=== PATIENT | male | born 1950 | race American Indian/Alaskan Native ===

== ENCOUNTER 2018-07-01 07:29 | Emergency (ER) | payer MEDICARE ==
[2018-07-01] MEDS ORDERED: KEPPRA 1,000 MG/NS 0.75% 100ML 1,000 MG/100 ML BAG IV ONE ×2 (07:37→12:07)
--- NOTE | 2018-07-01 07:39 | Emergency Department Report ---
HPI <LISANDRA STARR - Last Filed: 07/02/18 01:46> - HPI HPI: 67-year-old -[place] male, who does not appear to have ever been here before, presents to the emergency department from home via EMS with complaint of seizures. The patient had a witnessed seizure at home followed by another witnessed seizure by EMS, for which he received 2 mg of Ativan and stopped seizing. He is currently altered and more postictal and a poor historian. Per EMS, the patient does not have any seizure history prior to today and just has a past medical history of hypertension and glaucoma. <JUSTUS ANDERSON Dian - Last Filed: 07/02/18 18:49> - General Time Seen by Provider: 07/01/18 07:34 ED Review of Systems ROS: Stated complaint: SEIZURE Other details as noted in HPI <LISANDRA STARR - Last Filed: 07/02/18 01:46> ROS: Stated complaint: SEIZURE Other details as noted in HPI Comment: Unobtainable due to pts medical conditions <JUSTUS ANDERSON Dian - Last Filed: 07/02/18 18:49> Physical Exam - Physical Exam Vital Signs: Vital Signs 07/01/18 07/01/18 07/01/18 07:36 10:56 11:00 Temperature 97.6 F Pulse Rate 118 H 106 H 101 H Respiratory 17 25 H 25 H Rate Blood Pressure 165/65 O2 Sat by Pulse 93 Oximetry 07/01/18 07/01/18 07/01/18 11:16 11:56 12:00 Temperature Pulse Rate 96 H 95 H 89 Respiratory 22 13 18 Rate Blood Pressure 116/77 136/86 143/103 O2 Sat by Pulse Oximetry 07/01/18 07/01/18 07/01/18 12:30 13:00 14:00 Temperature Pulse Rate 82 87 76 Respiratory 14 18 13 Rate Blood Pressure 139/83 141/84 130/76 O2 Sat by Pulse Oximetry 07/01/18 07/01/18 07/01/18 15:00 16:00 18:15 Temperature Pulse Rate 74 82 Respiratory 20 14 Rate Blood Pressure 125/65 142/81 132/72 O2 Sat by Pulse 99 99 Oximetry <AMIRASWAPNALISANDRA - Last Filed: 07/02/18 01:46> - Physical Exam Physical Exam: GENERAL: Patient is ill-appearing. Mild. HEENT: Normocephalic. Atraumatic. Patient has moist mucous membranes. EYES: Extraocular motions are intact. Pupils are equal and reactive to light bilaterally. NECK: Supple. Trachea is midline. CHEST/LUNGS: Clear to auscultation. There is no respiratory distress noted. HEART/CARDIOVASCULAR: Regular. There is no tachycardia. There is no obvious murmur. ABDOMEN: Abdomen is soft, nontender. Patient has normal bowel sounds. There is no abdominal distention. SKIN: Skin is warm and dry. NEURO: The patient is awake but confused and agitated. Patient currently nonverbal. There appears to be some right upper extremity weakness when compared to the other 3 extremities. No facial asymmetry. MUSCULOSKELETAL: There is no tenderness or deformity. There is no evidence of acute injury. <JUSTUS ANDERSON S - Last Filed: 07/02/18 18:49> ED Course Vital Signs 07/01/18 07/01/18 07/01/18 07:36 10:56 11:00 Temperature 97.6 F Pulse Rate 118 H 106 H 101 H Respiratory 17 25 H 25 H Rate Blood Pressure 165/65 O2 Sat by Pulse 93 Oximetry 07/01/18 07/01/18 07/01/18 11:16 11:56 12:00 Temperature Pulse Rate 96 H 95 H 89 Respiratory 22 13 18 Rate Blood Pressure 116/77 136/86 143/103 O2 Sat by Pulse Oximetry 07/01/18 07/01/18 07/01/18 12:30 13:00 14:00 Temperature Pulse Rate 82 87 76 Respiratory 14 18 13 Rate Blood Pressure 139/83 141/84 130/76 O2 Sat by Pulse Oximetry 07/01/18 07/01/18 07/01/18 15:00 16:00 18:15 Temperature Pulse Rate 74 82 Respiratory 20 14 Rate Blood Pressure 125/65 142/81 132/72 O2 Sat by Pulse 99 99 Oximetry - Reevaluation(s) Reevaluation #1: 07/01/18 18:51 Case discussed with [facility], Dr. Gayle She has requested a reassessment of the patient. I have gone back to reassess the patient, and he is resting comfortably, awake, follows commands, and somewhat confused. He has 5 out of 5 strength in the left upper, left lower extremity, and 4 out of 5 strength right upper, right lower extremity. No additional seizures, blood pressure 130/70, heart rate in the 70s, to 80s, patient appears to be comfortable. MRI has been performed, interpretation is pending at this time. Dr. Gayle continues to accept patients to the neuro critical care [facility] units. <LISANDRA STARR - Last Filed: 07/02/18 01:46> - Consultations Consultation #1: I spoke to the neurologist/stroke attending at [facility], Dr. Kyle Walker, who took a look at the CT imaging results and was sent to the case presentation and did not feel that the patient appeared as likely to be a stroke candidate and certainly did not appear to require TPA or thrombectomy. He spoke with Dr. Gayle, neuro [facility], and they feel that it is possible that the patient has a small mass in this area with her was reports of vascular occlusion and small focal hemorrhage. Dr. Gayle has accepted the patient for transfer to her service pending an open bed. 07/01/18 15:23 <JUSTUS ANDERSON - Last Filed: 07/02/18 18:49> ED Medical Decision Making - Lab Data Result diagrams: 07/01/18 07:47 07/01/18 08:33 <LISANDRA STARR - Last Filed: 07/02/18 01:46> - Lab Data Result diagrams: 07/01/18 07:47 07/01/18 08:33 - Radiology Data Radiology results: report reviewed CT head without contrast: Seizure, unresponsive. No prior exam for comparison. Axial images demonstrates a focal area of hypodensity in the left caudate nucleus. There is generalized edema of the left cerebral hemisphere in the left parietal hemisphere and what may represent effacement of the lateral left ventricle. There is no midline shift. There is a question of a small focal area of hemorrhage adjacent to the left occipital horn. No extracerebral collections are noted. The visualized bony structures are generally unremarkable. Impression: The findings are consistent with probable subtle vascular occlusion supplying the left parietal region and possible small focal hemorrhage. Recommendation: Consider MRI scan for better definition. Transcribed By: FLORENCE Dictated By: JOSE CARLOS PALACIO MD Electronically Authenticated By: JOSE CARLOS PALACIO MD Signed Date/Time: 07/01/18 1012 PROCEDURE: MR BRAIN WO CON HISTORY: stroke, seizure, possible small hemorrhage FINDINGS: MRI of the brain was performed using sagittal T1, axial diffusion, axial T2, axial T2*gradient echo, axial FLAIR, axial T1, coronal FLAIR images. Comparison is made to the CT head performed earlier in the day. These images demonstrate that there is a complete corpus callosum. There is no Chiari malformation. Diffusion-weighted images demonstrate no acute transcortical or acute lacunar infarct. Posterior and lateral to the posterior horn of the left lateral ventricle is a multiloculated high T2 signal intensity region, axial T2-weighted images 12 and 13, measuring approximately 3.7 x 2.6 cm. This appears to be a fluid signal intensity and could, in and of itself, simply represent a neuroglial cyst. However, there is also extensive abnormal increased T2 signal intensity within the left parietal lobe white matter, as well as within the splenium of the corpus callosum. The corpus callosum signal in particular is very abnormal and is suspicious for primary brain glioma neoplasm such as glioblastoma. Postcontrast imaging is recommended. There is [id number] midline shift of approximately 0.3 cm. The vertebral arteries are not well seen. There is normal flow-void the basilar artery. There are normal flow voids in both internal carotid arteries. The mastoid air cells appear clear. There is no evidence of acute sinusitis. Impression: Multiloculated high T2 signal intensity region within left posterior periventricular white matter. There is also extensive abnormal increased T2 increased FLAIR signal intensity within the white matter of left parietal lobe extending into the splenium of the corpus callosum. 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 Post contrast MRI imaging is recommended. This document is electronically signed by Ian Lui MD., July 01 2018 08:06:17 PM ET Transcribed By: JEROME Dictated By: IAN LUI MD Electronically Authenticated By: IAN LUI MD Signed Date/Time: 07/01/182007 - Medical Decision Making This patient presented originally with a complaint of 2 witnessed seizures prior to presentation in the emergency department. Once he got here he appeared to have some right upper extremity weakness compared to the other extremities. He had some improvement from a basically unresponsive postictal state to be normally but confused but has remained in this confused state throughout his ED course. Labs show an ammonia level of 180 which may be the etiology of his symptoms. However he also had a CT scan of the head without contrast that showed a subtle area of vascular occlusion to the left parietal area as well as a very small possible subtle hemorrhagic focus adjacent to the left posterior horn. The patient has been loaded with Keppra. He has some hypokalemia so he has been given potassium chloride. He has been given some IV fluid resuscitation. At this time the patient has been accepted to [facility] pending a bed which may take multiple hours. MRI done later in the afternoon and I can see the results now show that it is suspicious for a brain mass such as a glioblastoma. The patient was accepted and transferred to [facility] by the evening. - Differential Diagnosis CVA, TIA, brain bleed, Hyperammonemia <JUSTUS ANDERSON - Last Filed: 07/02/18 18:49> Critical care attestation.: If time is entered above; I have spent that time in minutes in the direct care of this critically ill patient, excluding procedure time. <LISANDRA STARR - Last Filed: 07/02/18 01:46> Critical Care Time: Yes Critical care time in (mins) excluding proc time.: 35 Critical care attestation.: If time is entered above; I have spent that time in minutes in the direct care of this critically ill patient, excluding procedure time., Discussion with the neurologist and neuro [facility]. Critical Care Time: 35 minutes <JUSTUS ANDERSON - Last Filed: 07/02/18 18:49> ED Disposition Is pt being admited?: No Does the pt Need Aspirin: No <LISANDRA STARR - Last Filed: 07/02/18 01:46> Is pt being admited?: No Time of Disposition: 15:57 <JUSTUS ANDERSON - Last Filed: 07/02/18 18:49> Clinical Impression: Seizures, Hyperammonemia, Hypokalemia, Brain mass CVA (cerebral vascular accident) Qualifiers: CVA mechanism: unspecified Qualified Code(s): I63.9 - Cerebral infarction, unspecified Disposition: DC/TX-70 ANOTHER TYPE HLTHCARE Condition: Serious Referrals: KOBE CAMPOS MD [Primary Care Provider] - 3-5 Days
[2018-07-01 07:58] LABS: Hemoglobin 13.8 gm/dl (11.8-15.2); Mean Corpuscular HGB Conc 32 % (32-34); Mean Corpuscular Volume 87 fl (84-94); Platelet Count 215 K/mm3 (140-440); Red Blood Count 4.92 M/mm3 (3.65-5.03); Red Cell Distribution Width 15.5 % (13.2-15.2)
[2018-07-01 08:17] LABS: Alanine Aminotransferase 12 units/L (7-56); Albumin 4.3 g/dL (3.9-5); BUN/Creatinine Ratio 6; Blood Urea Nitrogen 9 mg/dL (9-20); Calcium 9.4 mg/dL (8.4-10.2); Hemolysis Index 19
[2018-07-01] MEDS ORDERED: NACL 0.9% 1000 ML 1,000 ML IV ONE (08:21)
[2018-07-01] MEDS ORDERED: ATIVAN IV ONE (08:30)
[2018-07-01] MEDS ORDERED: CEPHULAC PO ONE (08:31)
[2018-07-01] MEDS ORDERED: ATIVAN ONE (08:41)
[2018-07-01 09:01] LABS: BUN/Creatinine Ratio 7; Blood Urea Nitrogen 9 mg/dL (9-20); Hemolysis Index 9
[2018-07-01 10:03] LABS: Total Cells Counted 100
[2018-07-01 10:04] LABS: Giant Platelets Rare; Platelet Estimate Consistent w Auto; RBC Morphology Normal
--- NOTE | 2018-07-01 10:33 | Cat Scan Report ---
CT head without contrast: Seizure, unresponsive. No prior exam for comparison. Axial images demonstrates a focal area of hypodensity in the left caudate nucleus. There is generalized edema of the left cerebral hemisphere in the left parietal hemisphere and what may represent effacement of the lateral left ventricle. There is no midline shift. There is a question of a small focal area of hemorrhage adjacent to the left occipital horn. No extracerebral collections are noted. The visualized bony structures are generally unremarkable. Impression: The findings are consistent with probable subtle vascular occlusion supplying the left parietal region and possible small focal hemorrhage. Recommendation: Consider MRI scan for better definition.
[2018-07-01] MEDS: KCL 10MEQ/100ML 10 MEQ/100 ML BAG IV SCH ×3 (10:55→13:50)
--- NOTE | 2018-07-01 11:15 | Emergency Department Report ---
ED General Adult HPI - General Chief complaint: Seizure Stated complaint: SEIZURE Time Seen by Provider: 07/01/18 07:34 Source: EMS Mode of arrival: Stretcher Limitations: Altered Mental Status - Related Data Allergies Allergy/AdvReac Type Severity Reaction Status Date / Time No Known Allergies Allergy Unverified 07/01/18 07:55 ED Review of Systems ROS: Stated complaint: SEIZURE Other details as noted in HPI ED Past Medical Hx - Past Medical History Previous Medical History?: Yes Hx Hypertension: Yes Additional medical history: hyperlipidemia, glycoma - Surgical History Past Surgical History?: No - Social History Smoking Status: Unknown if ever smoked Substance Use Type: None ED Physical Exam - General Limitations: Altered Mental Status ED Course Vital Signs 07/01/18 07:36 Temperature 97.6 F Pulse Rate 118 H Respiratory 17 Rate Blood Pressure 165/65 O2 Sat by Pulse 93 Oximetry ED Medical Decision Making - Lab Data Result diagrams: 07/01/18 07:47 07/01/18 08:33 Critical care attestation.: If time is entered above; I have spent that time in minutes in the direct care of this critically ill patient, excluding procedure time. ED Disposition Condition: Stable Referrals: KOBE CAMPOS MD [Primary Care Provider] - 3-5 Days
--- NOTE | 2018-07-01 11:24 | Consultation ---
Medications and Allergies Allergies Allergy/AdvReac Type Severity Reaction Status Date / Time No Known Allergies Allergy Unverified 07/01/18 07:55 Active Meds: Active Medications Potassium Chloride (Kcl 10meq/100ml) 10 meq in 100 mls @ 100 mls/hr IV Q1H [facility] Stop: 07/01/18 11:59 Last Admin: 07/01/18 10:55 Dose: 100 mls/hr Documented by: Levetiracetam 750 mg/ Sodium (Chloride) 107.5 mls @ 400 mls/hr IV Q12HR [facility] Physical Examination - Vital Signs Vital Signs: Vital Signs Temp Pulse Resp BP Pulse Ox 97.6 F 118 H 17 165/65 93 07/01/18 07:36 07/01/18 07:36 07/01/18 07:36 07/01/18 07:36 07/01/18 07:36 Results - Laboratory Findings CBC and BMP: 07/01/18 07:47 07/01/18 08:33 Abnormal Lab Findings: Abnormal Labs 07/01/18 07/01/18 07/01/18 07:42 07:47 07:47 WBC 18.9 H RDW 15.5 H Lymphocytes % (Manual) 49.0 H Monocytes % (Manual) 8.0 H Lymphocytes # (Manual) 9.3 H Monocytes # (Manual) 1.5 H Basophils # (Manual) 0.2 H Potassium 3.0 L Carbon Dioxide 10 L Glucose 181 H POC Glucose Ammonia 180.0 H 07/01/18 07/01/18 07:52 08:33 WBC RDW Lymphocytes % (Manual) Monocytes % (Manual) Lymphocytes # (Manual) Monocytes # (Manual) Basophils # (Manual) Potassium 2.8 L* Carbon Dioxide 19 L D Glucose 174 H POC Glucose 176 H Ammonia Assessment and Plan [facility] Date of Service 07/01/2018 Originally called as stroke alert but seen as STAT consult as imaging was already done and he presented with seizure. Impression: 1- probable subtle vascular occlusion supplying the left parietal region and possible small focal hemorrhage based on head CT; 2- new onset seizure likely due to the above 3- altered mental status likely postictal Recommendations: 1- brain MRI with and without contrast 4- head and neck CTA or MRA; does not appear to have focal deficits on evaluation at least suggestive of Large Vessel Occlusion therefore no need for STAT head and neck CTA, also not an IV tpA candidate due to potential small hemorrhage on head CT 2- Prn IV Ativan for breakthrough seizure 3- Continue Keppra 750mg BID 4- No Antiplatelet therapy or anticoagulation 5- Routine EEG 6- keep [id number] (if stroke is rule out then keep SBP<160) [facility] Neurologist will follow up with results. Please call us back at [phone] with questions. Reason for Neurology Consult: - History of Present Illness: - 67-year-old -[place] male, who does not appear to have ever been here before, presents to the emergency department from home via EMS with complaint of seizures. The patient had a witnessed seizure at home followed by another witnessed seizure by EMS, for which he received 2 mg of Ativan and stopped seizing. He is currently postictal and a poor historian. Per EMS, the patient does not have any seizure history prior to today and just has a past medical history of hypertension and glaucoma. Diagnostic Testing: - Head CT: findings consistent with probable subtle vascular occlusion supplying the left parietal region and possible small focal hemorrhage. Review of Systems: Constitutional: Negative except as documented in history of present illness. Eye: Negative except as documented in history of present illness. Ear/Nose/Mouth/Throat: Negative except as documented in history of present illness. Respiratory: Negative except as documented in history of present illness. Cardiovascular: Negative except as documented in history of present illness. Gastrointestinal: Negative except as documented in history of present illness. Musculoskeletal: Negative except as documented in history of present illness. Neurologic: Negative except as documented in history of present illness. Examination: Agitated , not oriented, in restraints. Face is symmetric, does track but does not follow commands. Moves all 4 extremities equally. Speech is very limited. Medical Decision Making: - Extensive number of diagnosis or management options are considered above. - Extensive amount of complex data reviewed. - High risk of complication and/or morbidity or mortality are associated with differential diagnostic considerations above. - There may be uncertain outcome and increased probability of prolonged functional impairment or high probability of severe prolonged functional impairment associated with some of these differential diagnoses. Medical Data Reviewed: 1.Data reviewed include clinical labs, radiology,Medical Tests; 2.Tests results discussed w/performing or interpreting physician; 3.Obtaining/reviewing old medical records; 4.Obtaining case history from another source; 5.Independent review of image, tracing or specimen. When possible Patient/family were informed the Neurology Consult would happen via telehealth (remote video) and consented to receiving care in this manner.
[2018-07-01] MEDS ORDERED: CEPHULAC PR PRN (12:14)
[2018-07-01 12:23] LABS: INR 1.02 (0.87-1.13)
[2018-07-01 12:24] LABS: Partial Thromboplastin Time 26.7 Sec. (24.2-36.6)
[2018-07-01 12:30] LABS: Amphetamine Screen,Urine PRESUMPTIVE NEGATIVE; Benzodiazepines Screen,Urine PRESUMPTIVE NEGATIVE; Cannabinoid Screen,Urine PRESUMPTIVE NEGATIVE; Cocaine Screen,Urine PRESUMPTIVE NEGATIVE; Methadone Screen,Urine PRESUMPTIVE NEGATIVE; Opiate Screen,Urine PRESUMPTIVE NEGATIVE
[2018-07-01 12:33] LABS: Bilirubin,Urine NEG (Negative); Blood,Urine SM (Negative); Color,Urine Yellow (Yellow); Mucus,Urine FEW /HPF; Protein,Urine <15 mg/dL mg/dL (Negative); Urobilinogen,Urine < 2.0 mg/dL (<2.0); WBC,Urine < 1.0 /HPF (0.0-6.0)
[2018-07-01] MEDS ORDERED: CEPHULAC ONE (16:14)
--- NOTE | 2018-07-01 20:08 | Magnetic Resonance Report ---
PROCEDURE: MR BRAIN WO CON HISTORY: stroke, seizure, possible small hemorrhage FINDINGS: MRI of the brain was performed using sagittal T1, axial diffusion, axial T2, axial T2*gradi ent echo, axial FLAIR, axial T1, coronal FLAIR images. Comparison is made to the CT head performed earlier in the day. These images demonstrate that there is a complete corpus callosum. There is no Chiari malformation. Diffusion-weighted images demonstrate no acute transcortical or acute lacunar infarct. Posterior and lateral to the posterior horn of the left lateral ventricle is a multiloculated high T2 signal intensity region, axial T2-weighted images 12 and 13, measuring approximately 3.7 x 2.6 cm. T his appears to be a fluid signal intensity and could, in and of itself, simply represent a neuroglial cyst. However, there is also extensive abnormal increased T2 signal intensity within the left pariet al lobe white matter, as well as within the splenium of the corpus callosum. The corpus callosum sign al in particular is very abnormal and is suspicious for primary brain glioma neoplasm such as gliobla stoma. Postcontrast imaging is recommended. There is [id number] midline shift of approximately 0.3 cm. The vertebral arteries are not well seen. There is normal flow-void the basilar artery. There are nor mal flow voids in both internal carotid arteries. The mastoid air cells appear clear. There is no evidence of acute sinusitis. Impression: Multiloculated high T2 signal intensity region within left posterior periventricular white matter. Th ere is also extensive abnormal increased T2 increased FLAIR signal intensity within the white matter of left parietal lobe extending into the splenium of the corpus callosum. This is suspicious for prim yuliya glial lesion such as glioblastoma. Post contrast MRI imaging is recommended. This document is electronically signed by Ian Lui MD., July 01 2018 08:06:17 PM ET
[2018-07-01] MEDS ORDERED: KEPPRA 750 MG in NACL 0.9% 100 ML IV SCH (22:00)
[2018-07-01 22:44] VITALS: BP 133/65
== END 2018-07-01 22:54 | disposition other institution (70) ==
LOC: ED 07:29
DX: R56.9 Unspecified convulsions (principal); I63.9 Cerebral infarction, unspecified; I10 Essential (primary) hypertension; C71.9 Malignant neoplasm of brain, unspecified; E87.6 Hypokalemia; E72.20 Disorder of urea cycle metabolism, unspecified; Z86.69 Personal history of other diseases of the nervous system and sense organs
CPT/HCPCS: 36415; 70450; 70551; 80048; 80053; 80307; 81001; 82140; 82550; 82962; 84484; 85007; 85025; 85610; 85730; 93005; 93010; 96365; 96366; 96367; 96375; 99291; G0480; J1953; J2060; J3480; J7030; 80320